=== PATIENT | female | born 1990 | race Two or more races ===

== ENCOUNTER 2018-12-04 18:25 | Inpatient (IN) ==
[2018-12-04] MEDS ORDERED: MEPERIDINE 50 MG/1 ML VIAL IV PRN (18:44)
[2018-12-04] MEDS ORDERED: ONDANSETRON 4 MG/2 ML VIAL IV PRN ×2 (18:44→22:25)
[2018-12-04] MEDS ORDERED: BUTORPHANOL 2 MG/ML VIAL IV PRN (18:44)
[2018-12-04] MEDS ORDERED: ePHEDrine 50 MG/ML AMP IV PRN (18:46)
[2018-12-04] MEDS ORDERED: FAMOTIDINE 20 MG/2 ML VIAL IV ONE (18:46)
[2018-12-04] MEDS ORDERED: hydrOXYzine HCL 25 MG/1 ML VIAL IM PRN (18:46)
[2018-12-04] MEDS ORDERED: PROMETHAZINE 25 MG/1 ML VIAL IM ONE (18:46)
[2018-12-04] MEDS ORDERED: CITRIC ACID/SODIUM CITRATE 30 ML UDCUP PO ONE (18:46)
[2018-12-04] MEDS ORDERED: diphenhydrAMINE 50 MG/1 ML VIAL IV PRN ×2 (18:46)
[2018-12-04] MEDS ORDERED: LACTATED RINGERS 1,000 ML IV ONE (18:46)
[2018-12-04] MEDS ORDERED: NALOXONE 0.4 MG/ML VIAL IV PRN (18:46)
[2018-12-04] MEDS ORDERED: OXYTOCIN/LR 20 UNIT/1,000 ML BAG IV SCH (19:00)
[2018-12-04] MEDS ORDERED: fentaNYL 2 MCG/ROPIV 0.2% EPID 100 ML EPIDURAL SCH (19:00)
[2018-12-04] MEDS ORDERED: LACTATED RINGERS 1,000 ML IV SCH (19:00)
[2018-12-04] MEDS ORDERED: fentaNYL 100 MCG/2 ML VIAL ONE (19:06)
[2018-12-04 19:11] LABS: Basophils # 0.1 10*3/uL (0.0-0.2); Basophils % 0.4 % (0.0-0.8); Eosinophils % 0.3 % (0.00-10.9); Hematocrit 40.5 VOL% (35.7-47.0); Hemoglobin 12.9 GM/DL (12.0-16.0); Immature Granulocytes % 0.7 %; Immature Granulocytes Absolute 0.08 #; Lymphocytes # 1.9 10*3/uL (1.4-4.0); Mean Corpuscular HGB Conc 31.9 GM/DL (32-36); Mean Corpuscular Hemoglobin 29 PG (27-34); Mean Corpuscular Volume 92.3 FL (87-102); Mean Platelet Volume 11.2 FL (9.6-12.0); Monocytes # 0.7 10*3/uL (0.11-0.8); Monocytes % 5.6 % (1.7-12.7); Neutrophils # 9.4 10*3/uL (1.4-7.4); Platelet Count 289 T/CUMM (130-400); Red Blood Count 4.39 MC/CUMM (3.8-5.5); Red Cell Distribution Width 17.9 % (9.3-17.3); White Blood Count 12.2 T/CUMM (4-12)
[2018-12-04 19:21] LABS: Albumin 2.6 G/DL (3.4-5.0); Bilirubin,Total 0.8 MG/DL (0.2-1.0); Calcium 8.8 MG/DL (8.5-10.1); Total Protein 7.7 G/DL (6.4-8.3)
[2018-12-04] MEDS ORDERED: CARBOPROST TROMETHAMINE 250 MCG/ML AMP IM ONE (20:03)
[2018-12-04] MEDS ORDERED: LIDOCAINE 1% 50 ML VIAL ONE (20:03)
[2018-12-04] MEDS ORDERED: METHYLERGONOVINE 0.2 MG/1 ML AMP ONE (20:03)
[2018-12-04] MEDS ORDERED: miSOPROStol 200 MCG TABLET ONE (20:03)
[2018-12-04 20:48] LABS: Albumin 2.5 G/DL (3.4-5.0); Bilirubin,Direct 0.23 MG/DL (0.0-0.20); Bilirubin,Indirect 0.3 MG/DL (0.0-1.0); Bilirubin,Total 0.5 MG/DL (0.2-1.0); Total Protein 7.6 G/DL (6.4-8.3)
[2018-12-04] MEDS ORDERED: MEASLES/MUMPS/RUBELLA VACCINE 0.5 ML VIAL SUBCUT ONE (22:25)
[2018-12-04] MEDS ORDERED: HYDROCORTISONE 2.5% RECTAL CREAM 30 GM TUBE TOP PRN (22:25)
[2018-12-04] MEDS ORDERED: BISACODYL 10 MG SUPP RECTAL PRN (22:25)
[2018-12-04] MEDS ORDERED: RHO(D) IMMUNE GLOBULIN 300 MCG SYRINGE IM ONE (22:25)
[2018-12-04] MEDS ORDERED: OXYTOCIN/LR 20 UNIT/1,000 ML BAG IV ONE (22:25)
[2018-12-04] MEDS ORDERED: ACETAMINOPHEN 325 MG TABLET PO PRN (22:25)
[2018-12-04] MEDS ORDERED: oxyCODONE/ACETAMINOPHEN 5-325 MG TABLET PO PRN ×2 (22:25)
[2018-12-04] MEDS ORDERED: LANOLIN 50% CREAM 0.3 OZ TUBE TOP PRN (22:25)
[2018-12-04] MEDS ORDERED: BENZOCAINE 20%/MENTHOL 0.5% SPRAY 56 GM CAN TOP PRN (22:25)
[2018-12-04] MEDS ORDERED: WITCH HAZEL PADS 100/JAR TOP PRN (22:25)
[2018-12-04] MEDS ORDERED: DIPH/TET/ACEL PERT BOOSTER VACCINE 0.5 ML VIAL IM ONE (22:25)
[2018-12-04 23:28] LABS: Apearance,Urine CLEAR (Clear); Bilirubin,Urine Negative (Negative); Blood, Urine Small mg/dL (Negative); Glucose,Urine (UA) Negative (Negative); Ketones,Urine 5 mg/dL (Negative); Mucus,Urine Occasional /LPF (Occasional); Nitrite,Urine Negative (Negative); Protein,Urine Negative; RBC,Urine 6 /HPF (0-4); Renal Epithelial Cells,Urine Occasional /HPF (<1); Squamous Epithelial Cell,Urine Occasional /HPF (0-10); Urine Color Yellow (Yellow); Urine Urobilinogen < 2.0 EU/DL (0.2-1.0); WBC,Urine 1 /HPF (0-6)
[2018-12-05] MEDS: IBUPROFEN 800 MG TABLET PO PRN ×3 (01:24→19:59)
[2018-12-05 05:51] LABS: Basophils % 0.4 % (0.0-0.8); Eosinophils % 0.3 % (0.00-10.9); Hematocrit 32.8 VOL% (35.7-47.0); Immature Granulocytes % 0.5 %; Immature Granulocytes Absolute 0.06 #; Lymphocytes # 2.1 10*3/uL (1.4-4.0); Lymphocytes % 18.5 % (21.3-54.2); Mean Corpuscular HGB Conc 32.6 GM/DL (32-36); Mean Corpuscular Hemoglobin 30 PG (27-34); Mean Corpuscular Volume 90.6 FL (87-102); Mean Platelet Volume 11.2 FL (9.6-12.0); Monocytes # 0.8 10*3/uL (0.11-0.8); Monocytes % 6.9 % (1.7-12.7); Neutrophils # 8.2 10*3/uL (1.4-7.4); Neutrophils % 73.4 % (38.7-73.9); Red Blood Count 3.62 MC/CUMM (3.8-5.5); Red Cell Distribution Width 17.8 % (9.3-17.3); White Blood Count 11.1 T/CUMM (4-12)
[2018-12-05 06:00] LABS: Hemoglobin 10.7 GM/DL (12.0-16.0); Platelet Count 223 T/CUMM (130-400)
[2018-12-05] MEDS: DOCUSATE SODIUM 100 MG CAPSULE PO SCH ×2 (08:23→20:00)
[2018-12-06 08:21] VITALS: BP 105/68
[2018-12-06] MEDS: DOCUSATE SODIUM 100 MG CAPSULE PO SCH (08:43)
== END 2018-12-06 12:10 | disposition home or self-care (01) | DRG 807 ==
LOC: N.LDOUT 18:25 → N.LD 18:27 → N.OB 12-05 00:11
PROVIDERS: ADMIT Obstetrics & Gynecology; ATTEND Obstetrics & Gynecology